=== PATIENT | male | born 1960 | race Caucasian/White ===

== ENCOUNTER → 2018-10-25 15:18 | Outpatient (CLI) | payer OTHER, SELFPAY ==
--- NOTE | 2018-10-25 | DI.RAD.S_ITS ---
PROCEDURE: XR LUMBAR SPINE 2-3V INDICATIONS: LOW BACK PAIN TECHNIQUE: 3 views of the lumbar spine were acquired. COMPARISON: None. FINDINGS: Bones: 5 [id number] vertebrae are present. There is mild textural curvature; otherwise normal bony alignment. No vertebral body compression fractures. No suspicious bony lesions. There is degenerative disc disease, moderate to severe LCF L4, moderate at L2-L3, L4-L5 and L5-S1, and mild at L1-L2. There is severe facet arthropathy at L4-L5 and L5-S1. Soft tissues: Overlying bowel gas pattern is normal. No suspicious soft tissue calcifications. IMPRESSION: Degenerative disc and facet disease. Dictated by: Manjeet Fortune M.D. on 10/25/2018 at 16:50 Approved by: Manjeet Fortune M.D. on 10/25/2018 at 16:52
== END ==
PROVIDERS: Visit Provider Family Medicine
DX: M54.5 Low back pain (principal); M51.36 Other intervertebral disc degeneration, lumbar region; M51.37 Other intervertebral disc degeneration, lumbosacral region; M47.816 Spondylosis without myelopathy or radiculopathy, lumbar region
CPT/HCPCS: 72100

== ENCOUNTER → 2019-11-21 15:11 | Outpatient (CLI) | payer OTHER, SELFPAY ==
[2019-11-21 16:23] LABS: Influenza A - CEPHEID Flu A NEGATIVE (NEGATIVE); Influenza B - CEPHEID Flu B NEGATIVE (NEGATIVE)
== END ==
PROVIDERS: PCP Physician Assistant Medical; Referring Provider Family Medicine; Visit Provider Family Medicine
DX: J06.9 Acute upper respiratory infection, unspecified (principal)
CPT/HCPCS: 87502

== ENCOUNTER → 2020-08-19 14:46 | Outpatient (CLI) | payer OTHER, SELFPAY ==
--- NOTE | 2020-08-19 14:51 | DI.RAD.S_ITS ---
PROCEDURE: XR SHOULDER RT MIN 2V INDICATIONS: Bilateral shoulder pain TECHNIQUE: 3 views of the shoulder were acquired. COMPARISON: [facility], CR, XR SHOULDER LT MIN 2V, 08/19/2020, 15:13. FINDINGS: Bones: No fractures or dislocations, but the AC joint demonstrates only a slight degree of degenerative osteoarthritic change and the glenohumeral joint demonstrates mild to moderate degenerative osteoarthritic change.. No suspicious bony lesions. Visualized ribs appear intact. Soft tissues: No suspicious soft tissue calcifications. 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 No trauma found bilaterally. Dictated by: Marcell Ocampo M.D. on 08/19/2020 at 15:58 Approved by: Marcell Ocampo M.D. on 08/19/2020 at 15:59
--- NOTE | 2020-08-19 14:51 | DI.RAD.S_ITS ---
PROCEDURE: XR SHOULDER LT MIN 2V INDICATIONS: Bilateral shoulder pain TECHNIQUE: 3 views of the shoulder were acquired. COMPARISON: None. FINDINGS: Bones: No fractures or dislocations but there is a [id number] degree of AC joint osteoarthritis. Glenohumeral joint osteoarthritis is severe with essentially [id number] articulation.. No suspicious bony lesions. Visualized ribs appear intact. Soft tissues: No suspicious soft tissue calcifications. IMPRESSION: The shoulder joint osteoarthritis is relatively mild at the AC joint but severe at the glenohumeral joint. No trauma found. Dictated by: Marcell Ocampo M.D. on 08/19/2020 at 15:57 Approved by: Marcell Ocampo M.D. on 08/19/2020 at 15:58
== END ==
PROVIDERS: PCP Family Medicine; Referring Provider Family Medicine; Visit Provider Family Medicine
DX: M25.512 Pain in left shoulder (principal); M25.511 Pain in right shoulder; M19.012 Primary osteoarthritis, left shoulder; M19.011 Primary osteoarthritis, right shoulder
CPT/HCPCS: 73030

== ENCOUNTER → 2024-12-18 14:27 | Outpatient (ROUT) | payer OTHER, SELFPAY ==
[2024-12-18 14:33] LABS: Add Manual Diff / Slide Review NO; Basophils Absolute Auto 100 /uL (0-100); Basophils Percent Auto 0.9 % (0-2); Eosinophils Absolute Auto 200 /uL (0-450); Eosinophils Percent Auto 2.7 % (2-4); Hematocrit 50.1 % (41-53); Lymphocytes Absolute Auto 2800 /uL (1100-4500); Lymphocytes Percent Auto 29.7 % (25-40); Mean Corpuscular HGB Conc 33.9 % (30-36); Mean Corpuscular Hemoglobin 30.9 PG (26-34); Mean Corpuscular Volume 91.1 fL (80-100); Monocytes Absolute Auto 800 /uL (0-900); Monocytes Percent Auto 8.6 % (3-14); Neutrophils Absolute Auto 5400 /uL (1500-7000); Neutrophils Percent Auto 58.1 % (50-75); Platelet Count 239 X10^3/uL (150-400); Red Blood Cell Count 5.51 X10^6/uL (4.5-5.9); Red Cell Distribution Width 13.2 % (11.6-14.8); White Blood Cell Count 9.3 X10^3/uL (4.5-11.0)
[2024-12-18 14:50] LABS: Alanine Aminotransferase 61 IU/L (<50); Albumin 4.7 g/dL (3.5-5.0); Albumin Globulin Ratio 1.6 (1.0-2.8); Alkaline Phosphatase 67 U/L (38-126); Aspartate Aminotransferase 46 IU/L (17-59); Bilirubin Total 0.9 mg/dL (0.2-1.3); Blood Urea Nitrogen 24 mg/dL (9-20); Calcium 9.3 mg/dL (8.4-10.2); Carbon Dioxide 25 mmol/L (22-32); Chloride 98 mmol/L (98-107); Cholesterol 191 mg/dL (140-199); Estimated Glomerular Filt Rate > 60 mL/min (>60); Glucose 108 mg/dL (80-110); HDL Cholesterol 62 mg/dL (40-60); HEMOLYSIS 19 (0-50); LDL Cholesterol Calculated 109 mg/dL (<100); Potassium 4.4 mmol/L (3.4-5.1); Sodium 136 mmol/L (137-145); Total Protein 7.7 g/dL (6.3-8.2); Triglycerides 98 mg/dL (35-150)
[2024-12-18 14:52] LABS: Hemoglobin A1C% w Est Avg Glu 6.4 % (4.0-6.0)
[2024-12-18 14:56] LABS: Creatinine Urine Random 118.55 mg/dL
[2024-12-18 15:01] LABS: Microalbumin Urine Random 1.3 mg/dL (0-1.6)
[2024-12-18 15:07] LABS: Vitamin D 25 Hydroxy (D3) 27.2 ng/mL (30.0-100.0)
[2024-12-18 15:20] LABS: Prostate Specific Antigen 0.704 ng/mL (0.10-4.00); Thyroid Stimulating Hormone 1.23 uIU/mL (0.47-4.68)
[2024-12-18 15:49] LABS: Vitamin B12 649 pg/mL (239-931)
== END ==
PROVIDERS: PCP Family Medicine; Visit Provider Family Medicine
DX: I10 Essential (primary) hypertension (principal); E11.9 Type 2 diabetes mellitus without complications; M19.91 Primary osteoarthritis, unspecified site; N52.9 Male erectile dysfunction, unspecified; E55.9 Vitamin D deficiency, unspecified
CPT/HCPCS: 80053; 80061; 82043; 82306; 82570; 82607; 83036; 84153; 84443; 85025

== ENCOUNTER → 2024-12-21 14:35 | Outpatient (CLI) | payer OTHER, SELFPAY ==
--- NOTE | 2024-12-21 14:40 | DI.RAD.S_ITS ---
PROCEDURE: XR KNEE RT 3V INDICATIONS: ARTHRITIS R KNEE TECHNIQUE: 3 views of the knee were acquired. COMPARISON: CR, KNEE 3V RIGHT, 06/07/2016, 15:21. FINDINGS: Bones: No fractures or dislocations. No suspicious bony lesions. Tricompartmental arthritic change most severe medially. Periarticular osteophytes are present. No erosions. Overall appearance is progressive compared to 2016. Soft tissues: Mild joint effusion. No suspicious soft tissue calcifications. IMPRESSION: Tricompartmental arthritic change most severely in the medial compartment, progressive. Dictated by: Yani Cuellar M.D. on 12/21/2024 at 16:18 Approved by: Yani Cuellar M.D. on 12/21/2024 at 16:19
== END ==
PROVIDERS: PCP Family Medicine; Referring Provider Family Medicine; Visit Provider Family Medicine
DX: M17.11 Unilateral primary osteoarthritis, right knee (principal)
CPT/HCPCS: 73562

== ENCOUNTER → 2024-12-26 15:13 | Outpatient (CLI) | payer OTHER, SELFPAY ==
--- NOTE | 2024-12-26 15:13 | DI.US.S_ITS ---
P in ROCEDURE: US ARTERIAL DUPLEX LE RT INDICATIONS: NO PULSE RT FOOT TECHNIQUE: Color and pulse Doppler interrogation was performed of the right lower extremity arterial system, with image documentation. COMPARISON: None. FINDINGS: Common femoral artery: 103 cm/sec, with triphasic flow. Deep femoral artery: 49 cm/sec, with biphasic flow. Proximal superficial femoral artery: 93 cm/sec, with triphasic flow. Mid superficial femoral artery: 101 cm/sec, with triphasic flow. Distal superficial femoral artery: 111 cm/sec, with triphasic flow. Popliteal artery: 109 cm/sec, with triphasic flow. Posterior tibial artery: 223 cm/sec, with biphasic flow. Anterior tibial artery/dorsalis pedis: 121 cm/sec, with biphasic flow. Knox-scale imaging description: Widely patent vessels with normal waveforms. IMPRESSION: Unremarkable right lower extremity duplex arterial ultrasound. Dictated by: Vivek Collins M.D. on 12/27/2024 at 20:22 Approved by: Vivek Collins M.D. on 12/27/2024 at 20:23
== END ==
PROVIDERS: PCP Family Medicine; Referring Provider Family Medicine; Visit Provider Family Medicine
DX: I73.9 Peripheral vascular disease, unspecified (principal); E11.9 Type 2 diabetes mellitus without complications
CPT/HCPCS: 93926